=== PATIENT | male | born 2000 | race Caucasian/White ===

== ENCOUNTER 2025-02-19 10:23 | Emergency (ER) | payer SELFPAY ==
[2025-02-19 10:24] VITALS: BP 169/104
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
[2025-02-19 11:01] VITALS: BMI 31.9
[2025-02-19] MEDS: ADACEL 0.5 ML IM (11:05)
[2025-02-19] MEDS: MOTRIN 600 MG PO (11:05)
== END 2025-02-19 12:42 | disposition home or self-care (01) ==
LOC: EMR 10:23
PROVIDERS: EMERGENCY PHYSICIAN Emergency Medicine
DX: S63.501A Unspecified sprain of right wrist, initial encounter (principal); V89.2XXA Person injured in unspecified motor-vehicle accident, traffic, initial encounter; Y92.410 Unspecified street and highway as the place of occurrence of the external cause; Z23 Encounter for immunization
CPT/HCPCS: 99283; 90471; 73110; 90715